=== PATIENT | female | born 1995 | race Caucasian/White ===

== ENCOUNTER 2018-10-14 12:36 | Emergency (ER) | payer OTHER ==
[~2018-10-14] VITALS: Ht 154.9 cm; Wt 73.5 kg
[2018-10-14 12:47] VITALS: BP 122/56
[2018-10-14] MEDS ORDERED: PREN-380 PO (12:54)
--- NOTE | 2018-10-14 12:55 | NUR ---
PT. AMB. TO BED#2
--- NOTE | 2018-10-14 13:01 | NUR ---
23 Y/O F W/C/O RT ARM PAIN, PATIENT DENIES INJURY. PATIENT STATES ONLY HURTS WITH MOVEMENT. 28 WKS. GESTATION .PATIENT DENIES ABD. PAIN/CRAMPING,DENIES VAG. BLEED,DENIES LOWER BACK PAIN. FEELS BABY MOVING. LMP 04/03/18. PT DENIES N/V/D; AAOX4, PERRL, WITH EVEN AND STEADY GAIT; LUNGS CLEAR BL, BREATHING UNLABORED; HR EVEN AND REGULAR, BL PERIPHERAL PULSES PRESENT; PT DENIES ANY FEVER, CP, SOB, OR COUGH AT THIS TIME; PT STATES 8/10 PAIN AT THIS TIME; VSS; PATIENT POSITIONED FOR COMFORT; HOB ELEVATED; BEDRAILS UP X2; BED DOWN. .HX: ABD. HERNIA REPAIR,TAKING MEDS.
--- NOTE | 2018-10-14 13:35 | NUR ---
PLACED A FABRICATED SPLINT ON PT'S RIGHT WRIST. PT ACCEPTED SPLINT WITHOUT ISSUE.
[2018-10-14 13:50] VITALS: BP 126/62
--- NOTE | 2018-10-14 13:51 | NUR ---
Patient discharged with v/s stable. Written and verbal after care instructions given and explained. Patient verbalized understanding. Ambulatory with steady gait. All questions addressed prior to discharge. Advised to follow up with PMD.
== END 2018-10-14 13:51 | disposition home or self-care (01) ==
LOC: MED 12:36
DX: O9A.212 Injury, poisoning and certain other consequences of external causes complicating pregnancy, second trimester (principal); S56.911A Strain of unspecified muscles, fascia and tendons at forearm level, right arm, initial encounter; Z79.899 Other long term (current) drug therapy; Z3A.28 28 weeks gestation of pregnancy; X58.XXXA Exposure to other specified factors, initial encounter
CPT/HCPCS: 81002; 81025; 99283